=== PATIENT | female | born 1980 ===

== ENCOUNTER 2020-08-14 10:05 | Outpatient (REF) | payer OTHER, SELFPAY ==
[2020-08-14 10:39] LABS: COVID-19 Test Negative (Negative); IDNOW Serial# 55D5AD1C
== END 2020-08-14 10:06 | disposition home or self-care (01) ==
LOC: HO.EMPCOV 10:05
PROVIDERS: PCP Internal Medicine; Visit Provider Internal Medicine
DX: Z20.828 Contact with and (suspected) exposure to other viral communicable diseases (principal)
CPT/HCPCS: 87635; C9803

== ENCOUNTER 2021-05-16 09:35 | Outpatient (REF) | payer OTHER, SELFPAY ==
[2021-05-16 10:36] LABS: MANUAL DIFF FLAG NO
[2021-05-16 10:46] LABS: Basophils Percent Auto 0.6 % (0-2); Eosinophils Absolute Auto 0.2 X10*3/uL (0.0-0.4); Eosinophils Percent Auto 2.8 % (0-4); Hematocrit 39.7 % (37-47); Hemoglobin 12.6 g/dl (12.0-16.0); Imm Gran Abs Auto 0.03 X10*3/uL (0.00-0.03); Imm Gran Pct Auto 0.4 % (0.0-0.4); Lymphocytes Absolute Auto 1.8 X10*3/uL (1.2-4.9); Lymphocytes Percent Auto 24.5 % (20-40); Mean Corpuscular HGB Conc 31.7 g/dl (31.0-35.0); Mean Corpuscular Hemoglobin 28.3 pg (27.0-33.0); Mean Platelet Volume 9.8 fL (9.4-12.3); Monocytes Absolute Auto 0.7 X10*3/uL (0.1-1.2); Monocytes Percent Auto 9.3 % (2-11); Neutrophils Absolute Auto 4.5 X10*3/uL (2.0-8.3); Neutrophils Percent Auto 62.4 % (45-73); Platelet Count 406 X10*3/uL (160-400); Red Blood Count 4.46 X10*6/uL (4.20-5.50); Red Cell Distribution Width 13.7 % (11.0-16.0); White Blood Count 7.2 X10*3/uL (4.8-10.8)
[2021-05-16 11:20] LABS: Alanine Aminotransferase 24 U/L (0-31); Albumin Level 4.4 g/dL (3.5-5.0); Anion Gap 13 (12-20); Aspartate Amino Transferase 26 U/L (5-31); Bilirubin Total 0.3 mg/dL (0.0-1.0); Blood Urea Nitrogen 6 mg/dL (9-16); Calcium 9.7 mg/dL (8.4-10.2); Carbon Dioxide 22 mmol/L (22-29); Chloride 105 mmol/L (96-108); Estimated Glomerular Filt Rate > 60; Glucose Random 92 mg/dL (60-115); Potassium 4.6 mmol/L (3.3-5.1); Sodium 135 mmol/L (135-145); Total Protein 7.5 g/dL (6.5-8.0); Triglycerides 268 mg/dL
[2021-05-16 11:21] LABS: Alkaline Phosphatase 69 U/L (39-117); Cholesterol 218 mg/dL; HDL Cholesterol 74 mg/dL; LDL Cholesterol Calculated 91 mg/dl
[2021-05-16 11:42] LABS: T4 Thyroxine 6.8 ug/dL (4.5-12.0)
== END 2021-05-16 09:36 | disposition home or self-care (01) ==
LOC: HO.LAB 09:35
PROVIDERS: PCP Internal Medicine; Visit Provider Internal Medicine
DX: Z00.00 Encounter for general adult medical examination without abnormal findings (principal)
CPT/HCPCS: 36415; 80053; 80061; 84436; 84443; 85025

== ENCOUNTER 2021-07-26 12:28 | Outpatient (REF) | payer OTHER, SELFPAY ==
--- NOTE | ~2021-07-26 | MM_ITS ---
EXAMINATION: MM DIAGNOSTIC DIGITAL BREAST TOMOSYNTHESIS, BILATERAL US DIAGNOSTIC ULTRASOUND BREAST, RIGHT CLINICAL INFORMATION: 41-year-old for annual mammography. At time of appointment, patient presents with pain and redness right areola. No discharge. Family history breast cancer, maternal grandmother. Prior outside mammography currently unavailable. Prior history benign left breast biopsy January 2018 (PASH, usual ductal hyperplasia, columnar cell change, cystic apocrine metaplasia). The lifetime risk of breast cancer based on the Tyrer-Cuzick Model is 16%. COMPARISON: None. Radiology department will attempt to retrieve prior outside mammography to allow for comparison in an addendum report. TECHNIQUE: Digital breast tomosynthesis is performed in both the craniocaudal and mediolateral oblique views along with computer-aided detection (CAD). Synthesized 2D images are generated from the tomosynthesis. Ultrasound right breast is targeted to the area of clinical concern subareolar and periareolar right breast. Grayscale imaging and color Doppler are performed without and with harmonics. FINDINGS: The breasts are heterogeneously dense, which may obscure small masses (ACR BI-RADS breast composition Category c). Left breast has a macrolobulated smooth mass with central biopsy clip marker and scattered internal calcifications lower inner quadrant measuring 3.7 x 2.4 x 1.4 cm. There is no architectural abnormality. No skin thickening or coarsening of the Toni's ligaments. Some dermal calcifications are scattered posterior central and inner breast. Right breast has parenchymal asymmetry posterior upper outer quadrant approximately 3 cm in size. There is no architectural abnormality. There are scattered dermal lesions mid and medial inferior breasts. There is mild smooth skin thickening right areola. Subtle nodular asymmetry present just beneath the nipple on tomography approximately 1.5 cm likely corresponding to finding on today's ultrasound. Ultrasound demonstrates circumscribed heterogeneous avascular cystic lesion just beneath the nipple contacting deep dermis with overall dimensions approximately 1.7 x 1.2 x 1.7 cm. There is increased through-transmission of sound. Mild surrounding hyperemia areas present on color Doppler. No internal color flow. This most likely represents a small abscess. Results are discussed with the patient at time of visit. Management options are discussed including ultrasound guided aspiration of the right subareolar lesion to allow for culture and sensitivity. Patient prefers them. The antibiotics and follow-up ultrasound. Results discussed with Dr. Hernandez at [address] Hernandez will follow up with patient regarding antibiotics and clinical and ultrasound follow up. MM/MM tomosynthesis diagnostic BI IMPRESSION: 1. Right: Probable subareolar abscess contacting deep dermis and measuring 1.7 x 1.2 x 1.7 cm. 2. Left: Mass with biopsy clip marker measuring 3.7 x 2.4 x 1.4 cm. ASSESSMENT: BI-RADS 3: Probably Benign RECOMMENDATION: 1. Patient to begin antibiotics and clinical followup with her PCP. 2. Follow up targeted right breast ultrasound in 4-7 days. 3. Radiology department will attempt to retrieve prior outside mammography to allow for comparison in an addendum report. This patient's information was entered into a reminder system with a target due date for their next mammogram.
== END 2021-07-26 12:29 | disposition home or self-care (01) ==
LOC: HO.MAMMO 12:28
PROVIDERS: Visit Provider Internal Medicine
DX: N64.4 Mastodynia (principal)
CPT/HCPCS: 76642; 77062; 77066

== ENCOUNTER 2021-07-31 13:03 | Outpatient (REF) | payer OTHER, SELFPAY ==
--- NOTE | ~2021-07-31 | US_ITS ---
EXAMINATION: US DIAGNOSTIC BREAST, RIGHT CLINICAL INFORMATION: One week follow-up right breast abscess. The patient states that the pain and redness is better than previously. COMPARISON: 07/26/2021 and studies dating back to 01/25/2018. TECHNIQUE: Ultrasound of the breast is performed with real-time hebert scale imaging and color Doppler. FINDINGS: There is again noted to be a complex hypoechoic structure measuring approximately 1.6 x 1.3 x 1.5 cm in size at the 1 to 2 o'clock position retroareolar location with its anterior surface in contact with the dermis. Previously, this measured approximately 1.7 x 1.2 x 1.7 cm in size. There appears to be some dependent debris within the cyst. There is prominent distal sound enhancement without evidence of distal sound shadowing. No internal vascularity is seen. There is increased vascularity circumferentially bordering the lesion. There is no definite solid mass, architectural abnormality, duct ectasia, or edema in the soft tissue planes. Results are discussed with the patient at time of visit. US/US breast RT limited IMPRESSION: No change in ultrasound appearance of right breast retroareolar complex cyst. Recommend continued clinical follow up. Three month follow up ultrasound could be considered, if symptoms do not improve. ASSESSMENT: BI-RADS 3: Probably Benign. RECOMMENDATION: Clinical management with follow up ultrasound in 3 months, if necessary. This patient's information was entered into a reminder system with a target due date for their next mammogram.
== END 2021-07-31 13:04 | disposition home or self-care (01) ==
LOC: HO.MAMMO 13:03
PROVIDERS: Visit Provider Internal Medicine
DX: N61.1 Abscess of the breast and nipple (principal)
CPT/HCPCS: 76642

== ENCOUNTER 2022-05-20 08:38 | Outpatient (REF) | payer OTHER, SELFPAY ==
[2022-05-20 08:50] LABS: MANUAL DIFF FLAG NO
[2022-05-20 09:39] LABS: Basophils Percent Auto 0.5 % (0-2); Eosinophils Absolute Auto 0.3 X10*3/uL (0.0-0.4); Eosinophils Percent Auto 3.3 % (0-4); Hemoglobin 13.1 g/dl (12.0-16.0); Imm Gran Abs Auto 0.02 X10*3/uL (0.00-0.03); Imm Gran Pct Auto 0.3 % (0.0-0.4); Lymphocytes Percent Auto 24.7 % (20-40); Mean Corpuscular HGB Conc 32.8 g/dl (31.0-35.0); Mean Corpuscular Hemoglobin 28.4 pg (27.0-33.0); Mean Corpuscular Volume 86.8 fL (80.0-98.0); Mean Platelet Volume 10.2 fL (9.4-12.3); Monocytes Absolute Auto 0.6 X10*3/uL (0.1-1.2); Monocytes Percent Auto 7.9 % (2-11); Neutrophils Percent Auto 63.3 % (45-73); Platelet Count 397 X10*3/uL (160-400); Red Blood Count 4.61 X10*6/uL (4.20-5.50); Red Cell Distribution Width 14.5 % (11.0-16.0); White Blood Count 7.9 X10*3/uL (4.8-10.8)
[2022-05-20 09:54] LABS: Estimated Average Glucose 94 mg/dL; Hemoglobin A1c % 4.9 %
[2022-05-20 10:17] LABS: Alanine Aminotransferase 27 U/L (0-31); Albumin Level 4.3 g/dL (3.5-5.0); Alkaline Phosphatase 80 U/L (39-117); Anion Gap 19 (12-20); Aspartate Amino Transferase 31 U/L (5-31); Bilirubin Total 0.5 mg/dL (0.0-1.0); Blood Urea Nitrogen 7 mg/dL (9-16); Calcium 9.6 mg/dL (8.4-10.2); Carbon Dioxide 20 mmol/L (22-29); Chloride 101 mmol/L (96-108); Cholesterol 230 mg/dL; Estimated Glomerular Filt Rate > 60; Glucose Random 100 mg/dL (60-115); HDL Cholesterol 70 mg/dL; LDL Cholesterol Calculated 88 mg/dl; Potassium 4.4 mmol/L (3.3-5.1); Sodium 136 mmol/L (135-145); Total Protein 7.5 g/dL (6.5-8.0); Triglycerides 363 mg/dL
[2022-05-20 10:37] LABS: Vitamin D 25-OH Total 12.8 ng/mL (>30)
[2022-05-20 11:06] LABS: Vitamin B12 386 pg/mL (200-900)
== END 2022-05-20 08:39 | disposition home or self-care (01) ==
LOC: HO.LAB 08:38
PROVIDERS: PCP Internal Medicine; Visit Provider Internal Medicine
DX: Z00.00 Encounter for general adult medical examination without abnormal findings (principal); E66.9 Obesity, unspecified; E55.9 Vitamin D deficiency, unspecified; E53.8 Deficiency of other specified B group vitamins
CPT/HCPCS: 36415; 80053; 80061; 82306; 82607; 83036; 84443; 85025

== ENCOUNTER 2022-08-21 16:57 | Outpatient (REF) | payer OTHER, SELFPAY ==
--- NOTE | ~2022-08-21 | XR_ITS ---
EXAMINATION: XR SHOULDER, RIGHT CLINICAL INFORMATION: Pain. COMPARISON: None TECHNIQUE: AP external rotation, Grashey, scapular Y, and axillary views of the right shoulder. FINDINGS: There is no visible acute fracture, dislocation or subluxation seen. There is inferior acromial spurring. No visible acute fracture, dislocation or subluxation seen. The soft tissues are normal. XR/XR shoulder RT min 2V IMPRESSION: Inferior acromial spurring. No visible acute fracture, dislocation or subluxation seen.
== END 2022-08-21 16:58 | disposition home or self-care (01) ==
LOC: HO.HOSX 16:57
PROVIDERS: Visit Provider Orthopaedic Surgery
DX: M25.511 Pain in right shoulder (principal); M24.811 Other specific joint derangements of right shoulder, not elsewhere classified
CPT/HCPCS: 73030

== ENCOUNTER 2023-01-14 12:00 | Outpatient (RCR) | payer OTHER, SELFPAY ==
--- NOTE | 2022-09-03 10:11 | MHC.PT.EP ---
[facility] [place] Office [place] Office [place] Office [address] [phone] F: [phone] F: [phone] F: [phone] F: [phone] Physical Therapy Plan of Care Date of Evaluation: Date of Surgery: Diagnosis: other specific joint derangements of R shoulder SLAP tear? internal derangement R shulder Assessment: 42 y/o RHD female referred to PT with internal derangement R shoulder. S/s consistent with ?SLAP tear verse ?adhesive capsulitis resulting in pain and difficulty with reaching overhead, don/doffing bra, grooming, digital printer operator, lifting, exercise regime secondary to decreased R shoulder A/PROM, decreased R shoulder strength, increased tissue tension, pain and impaired postural awareness. She would benefit from PT 2x/week for 6 weeks to address impairments, implement HEP and optimize functional mobility. Frequency and Duration: The patient will be seen 2x/week for 6 weeks Short Term Goals: 3 weeks compliant with HEP Improve R shoulder active flexion to 130 to facilitate reaching overhead Improve R shoulder ER actively to 45* to faciliate grooming Group Home Goals: 6 weeks I with HEP and self management of sx Pt will be able to reach overhead with pain < 2/10 Pt will be able to reach behind back to L1 wiht pain < 2/10 to facilitate dressing Treatment Plan: Modalities to reduce pain, spasms and effusion. Manual therapy to restore motion and function. Therapeutic exercise to improve strength and flexibility. Neuromuscular re-education for posture and balance. Therapeutic activities to return to functional activities of daily living. Electronically signed by: Fabiana De La Rosa PT Please sign and return to therapist. Thank you for your referral.
--- NOTE | 2023-01-14 13:25 | MHC.PT.DC ---
[facility] [place] Office [place] Office [place] Office [address] [phone] F: [phone] F: [phone] F: [phone] F: [phone] Physical Therapy Discharge Report Diagnosis: other specific joint derangements of R shoulder SLAP tear? internal derangement R shulder Date of Surgery: Date of Evaluation: 09/03/22 Date of Discharge: 01/14/23 Treatments to Date: 22 Cancellations to Date: 0 No Shows to Date: 0 Discharge Status: Improved Function Independent with HEP Discharge Summary: It feels better than when I started but is still stiff. Her shoulder AROM has improved however is still limited and not WNL. We reviewed HEP and pt to continue self management for ROM and strength. We discussed progression of adhesive capsulitis and that if it is still limited or becomes painful, to f/u with ortho. No further questions at this time. Electronically signed by: Fabiana De La Rosa PT Please sign and return to therapist. Thank you for your referral.
== END 2023-01-14 13:25 | disposition home or self-care (01) ==
LOC: HO.PT 12:00
PROVIDERS: PCP Internal Medicine; Visit Provider Orthopaedic Surgery
DX: M24.811 Other specific joint derangements of right shoulder, not elsewhere classified (principal)
CPT/HCPCS: 97110; 97140; 97161; 97530

== ENCOUNTER 2023-02-20 08:32 | Outpatient (REF) | payer OTHER, SELFPAY ==
[2023-02-20 08:59] LABS: MANUAL DIFF FLAG NO
[2023-02-20 09:24] LABS: Basophils Absolute Auto 0.1 X10*3/uL (0.0-0.2); Basophils Percent Auto 0.7 % (0-2); Eosinophils Absolute Auto 0.2 X10*3/uL (0.0-0.4); Eosinophils Percent Auto 3.1 % (0-4); Hematocrit 39.9 % (37.0-47.0); Hemoglobin 12.8 g/dl (12.0-16.0); Imm Gran Abs Auto 0.02 X10*3/uL (0.00-0.03); Imm Gran Pct Auto 0.3 % (0.0-0.4); Lymphocytes Absolute Auto 1.8 X10*3/uL (1.2-4.9); Lymphocytes Percent Auto 24.8 % (20-40); Mean Corpuscular HGB Conc 32.1 g/dl (31.0-35.0); Mean Corpuscular Hemoglobin 28.3 pg (27.0-33.0); Mean Corpuscular Volume 88.1 fL (80.0-98.0); Mean Platelet Volume 9.7 fL (9.4-12.3); Monocytes Absolute Auto 0.6 X10*3/uL (0.1-1.2); Neutrophils Absolute Auto 4.5 x10*3/uL (2.0-8.3); Neutrophils Percent Auto 62.1 % (45-73); Platelet Count 365 X10*3/uL (160-400); Red Blood Count 4.53 X10*6/uL (4.20-5.50); Red Cell Distribution Width 13.6 % (11.0-16.0); White Blood Count 7.2 X10*3/uL (4.8-10.8)
[2023-02-20 10:12] LABS: Ferritin 25 ng/mL (10-250); TSH reflex Free T4 1.16 uIU/mL (0.32-4.0); Vitamin D 25-OH Total 12.2 ng/mL (>30)
[2023-02-20 11:30] LABS: Appearance Urine Clear; Color Urine Yellow; Glucose Urine UA Negative (Negative); Leukocyte Esterase Urine Negative (Negative); Nitrite Urine Negative (Negative); Specific Gravity - Urine <= 1.005 (1.005-1.025); Urine Blood Negative (Negative); Urine Ketones Negative (Negative); Urine Protein Negative (Neg-Trace)
== END 2023-02-20 08:33 | disposition home or self-care (01) ==
LOC: HO.LAB 08:32
PROVIDERS: PCP Internal Medicine; Visit Provider Internal Medicine
DX: R30.9 Painful micturition, unspecified (principal); R53.83 Other fatigue; E53.8 Deficiency of other specified B group vitamins; E55.9 Vitamin D deficiency, unspecified
CPT/HCPCS: 36415; 81003; 82306; 82728; 84443; 85025; 87086

== ENCOUNTER 2023-03-06 08:47 | Outpatient (REF) | payer OTHER, SELFPAY ==
[2023-03-06 10:45] LABS: Alanine Aminotransferase 28 U/L (0-31); Albumin Level 4.2 g/dL (3.5-5.0); Alkaline Phosphatase 58 U/L (39-117); Anion Gap 14 (12-20); Aspartate Amino Transferase 29 U/L (5-31); Bilirubin Total 0.4 mg/dL (0.0-1.0); Blood Urea Nitrogen 8 mg/dL (9-16); Calcium 9.9 mg/dL (8.4-10.2); Carbon Dioxide 22 mmol/L (22-29); Chloride 107 mmol/L (96-108); Cholesterol 188 mg/dL; Estimated Glomerular Filt Rate > 60; Glucose Random 108 mg/dL (60-115); HDL Cholesterol 45 mg/dL; LDL Cholesterol Calculated 104 mg/dl; Potassium 4.1 mmol/L (3.3-5.1); Sodium 139 mmol/L (135-145); Total Protein 7.5 g/dL (6.5-8.0); Triglycerides 197 mg/dL
== END 2023-03-06 08:48 | disposition home or self-care (01) ==
LOC: HO.LAB 08:47
PROVIDERS: PCP Internal Medicine; Visit Provider Internal Medicine
DX: Z00.00 Encounter for general adult medical examination without abnormal findings (principal); E78.5 Hyperlipidemia, unspecified
CPT/HCPCS: 36415; 80053; 80061

== ENCOUNTER 2023-10-22 11:04 | Outpatient (AMB) | payer OTHER, SELFPAY ==
--- NOTE | 2023-10-22 11:09 | A.OFFVIS_ITS ---
Intake Intake Visit Reasons: OV-Right shoulder pain- Intake Note: Brittany is a 42 year old right hand dominant female who presents today for a follow up of her right shoulder internal derangement. At her last visit she was given a PT order. She has had some relief with PT and would like to proceed with MRI. She complains of bilateral hand numbness and tingling, she has not had NCS, RHD Allergies shell Allergy (Uncoded 08/21/22 13:33) esophageal spasm HPI OV-Right shoulder pain- HPI Details Brittany is a 43 year old woman who returns for her left shoulder internal derangement. A SLAP tear was suspected but not confirmed. She complains of pain in her shoulder with daily activity, worse with overhead activity, ROM, and at night. She found some relief from PT but still has pain and difficulty with reaching activities and pain. [facility] Medical History (Updated 08/21/22 @ 13:48 by Danilo Pulido MD) Internal derangement of right shoulder Hypercholesteremia Asthma Social History (Updated 08/21/22 @ 13:33 by Susan Mauricio [facility]) Current occupational status: employed Current occupation: nurse Review of Systems Const All systems reviewed & are unremarkable except as noted in HPI and below Physical Exam Const General: no acute distress, alert and awake Orientation/consciousness: patient oriented x3 HEENT Head: Yes normocephalic and Yes atraumatic Eyes EOM: EOMs intact bilaterally Resp Effort & Inspection: normal respiratory effort and able to speak in complete sentences Cardio Jugular venous distension: no JVD Skin General skin exam: turgor normal Rashes: no rashes Neuro General: patient oriented x3 Extrem Other: IR to hip pocket ER to 45 90/130 4/5 EC on right + O'judy's Psych Appearance: grossly normal Affect: normal affect Attitude: cooperative Assessment & Plan Assessment & Plan (1) Internal derangement of right shoulder: Code(s): M24.811 - Other specific joint derangements of right shoulder, not elsewhere classified Plan: COntinued weakness and difficulty with reaching tasks. PT helped but still with pain. MR to assess cuff given weakness and continued pain. Plan Prepared for Danilo Pulido MD by Luciano Lui, resident medical officer, on 10/22/23 at 11:13 AM, EST. Orders: Orders MR shoulder RT wo con Today M24.811 - Other specific joint derangements of right shoulder, not elsewhere classified Coding Level of Care Code Est Pt Level 4 (62761) Diagnoses Internal derangement of right shoulder M24.811
== END 2023-10-22 11:33 | disposition home or self-care (01) ==
PROVIDERS: PCP Internal Medicine; Visit Provider Orthopaedic Surgery
DX: M24.811 Other specific joint derangements of right shoulder, not elsewhere classified (principal)
CPT/HCPCS: 99213

== ENCOUNTER → 2023-10-22 11:04 | Outpatient (BNVA) | payer OTHER, SELFPAY | PROVIDERS: PCP Internal Medicine; Visit Provider Orthopaedic Surgery ==

== ENCOUNTER 2023-11-09 17:33 | Outpatient (REF) | payer OTHER, SELFPAY ==
--- NOTE | ~2023-11-09 | MR_ITS ---
EXAMINATION: MR SHOULDER WITHOUT CONTRAST, RIGHT CLINICAL INFORMATION: Right shoulder pain. Limited range of motion. Evaluate for internal derangement. COMPARISON: Right shoulder radiograph dated 08/21/2022. TECHNIQUE: MRI of the shoulder without contrast was performed on a high-field scanner. FINDINGS: ROTATOR CUFF: Minimal distal infraspinatus tendinosis. No measurable rotator cuff tendon tear. No muscle atrophy or fatty infiltration. BICEPS: Small amount of fluid within the proximal long head biceps tendon sheath consistent with mild tenosynovitis. No transverse tendon tear or tendon retraction. CORACOACROMIAL ARCH: The undersurface of the acromion is curved with small subacromial spurs. The acromioclavicular joint is normal. Trace fluid within the subacromial subdeltoid bursa, consistent with minimal bursitis. LABRUM/CAPSULE: No labral tear. Intact joint capsule. GLENOHUMERAL JOINT/MARROW: Unremarkable. MR/MR shoulder RT wo con IMPRESSION: 1. Minimal distal infraspinatus tendinosis without a measurable rotator cuff tendon tear. 2. Mild proximal long head biceps tenosynovitis without a transverse tendon tear or tendon retraction. 3. Minimal subacromial subdeltoid bursitis. 4. Small subacromial spurs.
== END 2023-11-09 17:34 | disposition home or self-care (01) ==
LOC: HO.MRI 17:33
PROVIDERS: PCP Internal Medicine; Visit Provider Orthopaedic Surgery
DX: M24.811 Other specific joint derangements of right shoulder, not elsewhere classified (principal)
CPT/HCPCS: 73221

== ENCOUNTER 2023-11-27 09:52 | Outpatient (AMB) | payer OTHER, SELFPAY ==
--- NOTE | 2023-11-27 09:59 | MHC.OFFVIS ---
Intake Intake Visit Reasons: OV - Right Shoulder MRI Review Intake Note: Brittany is a 42 year old right hand dominant female who presents today for a MRI review of her right shoulder internal derangement MRI Right Shoulder 11/09/23 IMPRESSION: 1. Minimal distal infraspinatus tendinosis without a measurable rotator cuff tendon tear. 2. Mild proximal long head biceps tenosynovitis without a transverse tendon tear or tendon retraction. 3. Minimal subacromial subdeltoid bursitis. 4. Small subacromial spurs. Allergies shell Allergy (Uncoded 11/27/23 10:00) esophageal spasm HPI OV - Right Shoulder MRI Review HPI Details Brittany is a 42 year old right hand dominant female who presents today for a MRI review of her right shoulder internal derangement. She feels no worse than before. Her pain is ever present in varying degrees. She occasionally has difficulty sleeping. She has done PT but has not had injections. [facility], [facility] Medical History (Updated 11/27/23 @ 14:46 by Danilo Pulido MD) Internal derangement of right shoulder Hypercholesteremia Asthma Social History (Reviewed 11/27/23 @ 10:01 by Marlyn Amin [facility]) Current occupational status: employed Current occupation: nurse Physical Exam Extrem Other: full rom neg ec + h/n Results Reviewed Results Reviewed: I personally reviewed the MR images. MRI Right Shoulder 11/09/23 IMPRESSION: 1. Minimal distal infraspinatus tendinosis without a measurable rotator cuff tendon tear. 2. Mild proximal long head biceps tenosynovitis without a transverse tendon tear or tendon retraction. 3. Minimal subacromial subdeltoid bursitis. 4. Small subacromial spurs. Assessment & Plan Assessment & Plan (1) Bursitis of right shoulder: Code(s): M75.51 - Bursitis of right shoulder Plan Intermittant symptoms of bursitis. Not sufficiently bothered to warrant intervention. I discussed this with her and if her symptoms worsen she will return to see me but, at this time, there is no intervention warranted. Coding Level of Care Code Est Pt Level 4 (45335) Diagnoses Bursitis of right shoulder M75.51
== END 2023-11-27 10:30 | disposition home or self-care (01) ==
PROVIDERS: PCP Internal Medicine; Visit Provider Orthopaedic Surgery
DX: M75.51 Bursitis of right shoulder (principal)
CPT/HCPCS: 99212

== ENCOUNTER → 2023-11-27 09:52 | Outpatient (BNVA) | payer OTHER, SELFPAY | PROVIDERS: PCP Internal Medicine; Visit Provider Orthopaedic Surgery ==

== ENCOUNTER 2024-03-08 08:19 | Outpatient (REF) | payer OTHER, SELFPAY ==
[2024-03-08 10:18] LABS: MANUAL DIFF FLAG NO
[2024-03-08 10:28] LABS: Basophils Absolute Auto 0.1 X10*3/uL (0.0-0.2); Basophils Percent Auto 1.2 % (0-2); Eosinophils Absolute Auto 0.3 X10*3/uL (0.0-0.4); Eosinophils Percent Auto 4.2 % (0-4); Hemoglobin 11.6 g/dl (12.0-16.0); Imm Gran Abs Auto 0.02 X10*3/uL (0.00-0.03); Imm Gran Pct Auto 0.3 % (0.0-0.4); Lymphocytes Percent Auto 30.2 % (20-40); Mean Corpuscular HGB Conc 31.4 g/dl (31.0-35.0); Mean Corpuscular Hemoglobin 24.4 pg (27.0-33.0); Mean Corpuscular Volume 77.7 fL (80.0-98.0); Mean Platelet Volume 10.5 fL (9.4-12.3); Monocytes Absolute Auto 0.5 X10*3/uL (0.1-1.2); Monocytes Percent Auto 6.7 % (2-11); Neutrophils Absolute Auto 3.8 x10*3/uL (2.0-8.3); Neutrophils Percent Auto 57.4 % (45-73); Platelet Count 480 X10*3/uL (160-400); Red Blood Count 4.76 X10*6/uL (4.20-5.50); Red Cell Distribution Width 15.9 % (11.0-16.0); White Blood Count 6.7 X10*3/uL (4.8-10.8)
[2024-03-08 10:48] LABS: Alanine Aminotransferase 15 U/L (0-31); Albumin Level 4.2 g/dL (3.5-5.0); Alkaline Phosphatase 80 U/L (39-117); Anion Gap 14 (12-20); Aspartate Amino Transferase 21 U/L (5-31); Bilirubin Total 0.4 mg/dL (0.0-1.0); Blood Urea Nitrogen 5 mg/dL (9-16); Calcium 9.7 mg/dL (8.4-10.2); Carbon Dioxide 22 mmol/L (22-29); Chloride 108 mmol/L (96-108); Cholesterol 179 mg/dL (<200); Estimated Glomerular Filt Rate > 60; Glucose Random 111 mg/dL (60-115); HDL Cholesterol 50 mg/dL (>40); LDL Cholesterol Calculated 95 mg/dL (<100); Potassium 4.2 mmol/L (3.3-5.1); Sodium 140 mmol/L (135-145); Total Protein 7.4 g/dL (6.5-8.0); Triglycerides 171 mg/dL (<150)
[2024-03-08 11:05] LABS: TSH reflex Free T4 0.96 uIU/mL (0.32-4.0); Vitamin D 25-OH Total 28.1 ng/mL (>30)
== END 2024-03-08 08:20 | disposition home or self-care (01) ==
LOC: HO.10HDL 08:19
PROVIDERS: Visit Provider Internal Medicine
DX: Z00.00 Encounter for general adult medical examination without abnormal findings (principal); Z13.29 Encounter for screening for other suspected endocrine disorder; Z13.220 Encounter for screening for lipoid disorders; Z13.0 Encounter for screening for diseases of the blood and blood-forming organs and certain disorders involving the immune mechanism
CPT/HCPCS: 36415; 80053; 80061; 82306; 84443; 85025

== ENCOUNTER 2024-06-15 15:42 | Outpatient (REF) | payer OTHER, SELFPAY | END 2024-06-15 15:43 | disposition home or self-care (01) | LOC: HO.LAB 15:42 | PROVIDERS: PCP Internal Medicine; Visit Provider Surgery | DX: L72.0 Epidermal cyst (principal); L08.9 Local infection of the skin and subcutaneous tissue, unspecified | CPT/HCPCS: 11404; 88304 ==

== ENCOUNTER 2024-06-15 15:42 | Outpatient (AMB) | payer OTHER, SELFPAY ==
--- NOTE | 2024-06-15 15:49 | A.OFFVIS_ITS ---
Intake Visit Reasons: cyst of right axilla Intake Note: This patient presents for cyst of the right axilla. Pt c/o; cyst right axilla. Employee Service Officer Required: No Accompanied by: Self / Same As Patient Allergies shell Allergy (Uncoded 06/15/24 15:54) esophageal spasm Medication List - Last Reconciled 06/15/24 by Ambrose Frank MD No Known Home Meds HPI HPI cyst of right axilla: Details: 44-year-old female referred for a cyst in the right axilla. She says she has had this area of swelling and tenderness for about a week now on the right axilla. She denies any previous cyst of the area or any history of trauma. She denies any drainage. [facility] Medical History (Updated 06/15/24 @ 17:13 by Ambrose Frank MD) Infected cyst of skin Internal derangement of right shoulder Hypercholesteremia Asthma Social History Current occupational status: employed Current occupation: nurse Review of Systems Const Denies chills and Denies fever(s) Card Denies chest pain, Denies dyspnea and Denies dyspnea on exertion Resp Denies cough, Denies dyspnea and Denies dyspnea on exertion GI Denies hematochezia and Denies change in bowel habits Denies hematuria Musc Denies back pain and Denies limited range of motion Neuro Denies focal weakness and Denies convulsions Psych Denies depression and Denies mood swings Physical Exam Const General: comfortable and no acute distress Orientation/consciousness: patient oriented x3 Neck Neck: Yes no lymphadenopathy Chest Other: Right axilla we note of a cystic induration, fluctuance, about 3.2 cm with some redness, well-defined Resp Auscultation: clear to auscultation bilaterally Cardio Rhythm: regular rhythm GI Palpation (GI): Soft to palpation, nontender and no guarding Neuro General: patient oriented x3 Office Procedures Excision Details: She was in reclining position. The area of the cyst was prepped and draped. Arm was abducted. The area was infiltrated with lidocaine 1%. I made an elliptical incision on the skin surrounding the cyst with a blade 15. This carried down through the full-thickness of the skin subcutaneous fat to excise this entire indurated area. This was sent as specimen. The cyst measured about 3.1 cm The incision was irrigated copiously. I closed the skin with simple interrupted nylon 3-0 in sutures. Dressings were applied. The procedure was completed. She tolerated the procedure well. There were no immediate complications. There was minimal 17088-tyqjn/arms/legs 3.1-4cm Procedure code (CPT) selection complete Assessment & Plan Assessment & Plan (1) Infected cyst of skin: Code(s): L72.9 - Follicular cyst of the skin and subcutaneous tissue, unspecified; L08.9 - Local infection of the skin and subcutaneous tissue, unspecified Category: Medical Plan: She has what appears to be an infected epidermal cyst on the right axilla. I explained to her the option of excision instead of I&D to prevent recurrence. I reviewed the risks, benefits, and alternatives. She wanted to proceed with excision. Excision was done under local anesthesia. She tolerated procedure well. There were no immediate complications. She was given wound care instructions. Coding Level of Care Code New Pt Level 3 (52903) Diagnoses Infected cyst of skin L72.9; L08.9 CPT Codes Trunk/Arms/Legs - CPT: 92815-zbtju/arms/legs 3.1-4cm ([id number])
== END 2024-06-15 17:11 | disposition home or self-care (01) ==
PROVIDERS: PCP Internal Medicine; Visit Provider Surgery
DX: L08.9 Local infection of the skin and subcutaneous tissue, unspecified (principal); L72.0 Epidermal cyst
CPT/HCPCS: 11404; 99203

== ENCOUNTER 2024-06-22 13:47 | Outpatient (AMB) | payer OTHER, SELFPAY ==
--- NOTE | 2024-06-22 13:51 | MHC.OFFVIS ---
Intake Visit Reasons: wound check, s/p excision cyst of the right axilla Intake Note: This patient presents for wound check s/p excision cyst of the right axilla. Pt c/o; ? infection, bump incision site. Flight Test Supervisor Required: No Accompanied by: Self / Same As Patient Allergies shell Allergy (Uncoded 06/22/24 13:54) esophageal spasm HPI HPI wound check, s/p excision cyst of the right axilla: Details: She had undergone excision of a cyst from the right axilla a week ago. She was worried a little bit about a ?bump? near the area of excision so she asked to be seen in the office. She denies any redness or drainage. [facility] Medical History Infected cyst of skin Internal derangement of right shoulder Hypercholesteremia Asthma Social History Current occupational status: employed Current occupation: nurse Review of Systems Const Denies chills and Denies fever(s) Physical Exam Const General: comfortable and no acute distress Chest Other: Right axilla excision site is well healing, not infected, sutures intact, no fluctuance, no redness, no pus Assessment & Plan Assessment & Plan (1) Infected cyst of skin: Code(s): L72.9 - Follicular cyst of the skin and subcutaneous tissue, unspecified; L08.9 - Local infection of the skin and subcutaneous tissue, unspecified Category: Medical Plan: Status post excision. The incision is actually healing well. I assured her that there is no evidence of any infection. I did not remove her sutures for now and will wait until next week when she has another follow-up. I did advise her to continue to keep an eye on the excision site. Coding Level of Care Code Global (72994) Diagnoses Infected cyst of skin L72.9; L08.9
== END 2024-06-22 14:10 | disposition home or self-care (01) ==
LOC: HO.HGS 13:47
PROVIDERS: PCP Internal Medicine; Visit Provider Surgery
DX: L72.9 Follicular cyst of the skin and subcutaneous tissue, unspecified (principal); L08.9 Local infection of the skin and subcutaneous tissue, unspecified
CPT/HCPCS: 99024

== ENCOUNTER → 2024-06-22 13:47 | Outpatient (BNVA) | payer OTHER, SELFPAY | PROVIDERS: PCP Internal Medicine; Visit Provider Surgery ==

== ENCOUNTER 2024-06-29 15:34 | Outpatient (AMB) | payer OTHER, SELFPAY ==
--- NOTE | 2024-06-29 15:39 | MHC.OFFVIS ---
Intake Visit Reasons: s/p exc cyst right axilla Intake Note: Patient presents for suture removal status post excision cyst right axilla. Pt c/o; reports no changes. Security Assistant Required: No Accompanied by: Self / Same As Patient Allergies shell Allergy (Uncoded 06/29/24 15:40) esophageal spasm HPI HPI s/p exc cyst right axilla: Details: She had undergone excision of a cyst from the right axilla 2 weeks ago. She tolerated procedure well. She denies complaints at this time. [facility] Medical History Infected cyst of skin Internal derangement of right shoulder Hypercholesteremia Asthma Surgical History History of removal of cyst (~06/15/24) Social History Current occupational status: employed Current occupation: nurse Review of Systems Const Denies chills and Denies fever(s) Physical Exam Const General: comfortable and no acute distress Skin Other: Excision site on the right axilla as well healed, not infected, sutures intact Assessment & Plan Assessment & Plan (1) Infected cyst of skin: Code(s): L72.9 - Follicular cyst of the skin and subcutaneous tissue, unspecified; L08.9 - Local infection of the skin and subcutaneous tissue, unspecified Category: Medical Plan: Status post excision. The incision is well healed. I removed all his sutures. I applied Steri-Strips. Her path report shows a ruptured epidermal cyst. She can follow up on a p.r.n. basis. Coding Level of Care Code Global (21233) Diagnoses Infected cyst of skin L72.9; L08.9
== END 2024-06-29 15:44 | disposition home or self-care (01) ==
LOC: HO.HGS 15:35
PROVIDERS: PCP Internal Medicine; Visit Provider Surgery
DX: L72.9 Follicular cyst of the skin and subcutaneous tissue, unspecified (principal); L08.9 Local infection of the skin and subcutaneous tissue, unspecified
CPT/HCPCS: 99024